=== PATIENT | female | born 1970 | race Hispanic/Latino ===

== ENCOUNTER → 2019-05-29 | Day surgery (SDC) | payer OTHER ==
[~2019-05-29] MED LIST: ALLEGRA-D 24 H1 EACH PO; FENTANYL CITRATE/PF 100MCG/2 ML INJ ONE; MIDAZOLAM HCL 2 MG/2 ML VIAL ONE; ONDANSETRON HCL INJ 2MG/ML 2ML 2 MG/ML VIAL ONE; PROPOFOL IV EMULSION 10 MG/ML 50 ML VIAL ONE; XARELTO10 MG PO; one a day PO
--- OUTSIDE RECORDS SUMMARY | 2019-05-29 06:48 | XMS REPORT ---
Author Author [place] [facility] Address Unknown Phone Unavailable Care Team Providers Care [facility] Name Role Phone Unavailable Unavailable Payers Payer Name Policy Type Policy Number Effective Date Expiration Date Problems This patient has no known problems. Allergies, Adverse Reactions, Alerts Allergy Name Allergy Type Status Severity Reaction(s) Onset Date Inactive Date Treating Clinician Comments No Known Contrast Allergies DA Active U 2004-10-10 00:00:00 No Known Drug Allergies DA Active U 2004-10-10 00:00:00 No Known Food Allergies DA Active U 2004-10-10 00:00:00 No Known Other Allergies DA Active U 2004-10-10 00:00:00 Medications This patient has no known medications. Results Test Description Test Time Test Comments Text Results Atomic Results Result Comments SCR MAMM BILATERAL CARMINA CAD DIGITAL 2019-04-16 09:53:57 - SCR MAMM BILATERAL CARMINA CAD DIGITALBILATERAL DIGITAL SCREENING MAMMOGRAM 3D/2D WITH CAD: 04/15/2019CLINICAL: Asymptomatic. Digital breast tomosynthesis was performed in addition to routine CC and MLO views. Current mammographic images were evaluated by either a [employer] M-Vu or a [employer] Image[employer]er CAD (computer aided detection system). Comparison is made to exams dated 04/18/2018 mammogram, 04/02 mammogram, and 03/06/2016 mammogram - [facility]. There are scattered fibroglandular tissues in both breasts. There are few benign calcifications in the right breast. No suspicious mass, architectural distortion, malignant type calcification, or lymph node abnormality detected. Breast architecture is stable compared to prior exams.IMPRESSION: BENIGNThere is no mammographic evidence of malignancy. Resume annual screening mammography in one year. Ryder Merrlil M.D. rb/:04/16/2019 09:53:57 Arch Support Technician: Maria Teresa TORRES, [facility] sent: BIRADS 1-2 Normal Mammogram BI-RADS: 2 Benign VENOUS THROMBOPHILIA PANEL 2018-11-15 17:16:00 PTT ACTIVATED (test code=APTT) 35.8 sec () This test has not been validated for monitoringunfractionated heparin therapy. aPTT-based therapeuticranges for unfractionated heparin therapy have not beenestablished. Consider ordering Heparin anti-Xa(unfractionated).Reference Range:18 years and older: 22.9 - 30.2 APTT 1:1 PUTTY TINTER MAKER: 29.3 secReference Range: 18 years and older: 22.9 - 30.2APTT 1:1 Saline: 44.8 Sec RVVT PATIENT (test code=RVVTPAT) ratio () DRVVT Screen Seconds: 120.0 High secReference Range: <=47.0 DRVVT Confirm Seconds: 64.0 secDRVVT Ratio: 1.8 High ratioVerified by repeat analysis.Testing while the patient is on anticoagulant therapy,including warfarin, dabigatran, or a direct Xa inhibitor maycause a false positive result.Reference Range: 0.8 - 1.2 Hexagonal Phospholipid [place]orge tral: 4 secThis value is NEGATIVE.This is a qualitative assay and is therefore reported aspositive for lupus anticoagulant or negative. Thequantitative value is provided as an aid in diagnosis.Reference Range: 0 - 11Previously reported result: 1.8 ratioEdited by: JOSE on 11/15/18:1710 PTT LONG ACTING (test code=PTTLA) seconds LAC Interpretation:The following interpretation for the presence of a lupusanticoagulant (LA) is not valid for patients receivingwarfarin, direct Xa inhibitor (e.g., rivaroxaban, apixaban)or direct thrombin inhibitor (e.g., dabigatran) therapy.These drugs may cause false positive lupus anticoagulant(LA) results but will not interfere with aCL and F1QT4msjcldee testing.A lupus anticoagulant is detected. This interpretation ismade based on ISTH guidelines for LA diagnosis (J ThrombHaemost. 2009; 7: 1737-40). As only persistent LA meetlaboratory diagnostic criteria for antiphospholipidsyndrome, repeat testing in 12 or more weeks isrecommended, ideally in the absence of anticoagulanttherapy. All SUMIT-based antiphospholipid antibodiesevaluated are normal. Please contact [facility]if further clarification is needed. ACTIVATED PROT C RESISTANCE (test code=APC) 2.0 ratio () A low activated protein C resistance (APCR) is a risk factorfor venous thrombosis and is a screen for the Factor VLeiden mutation. Consider molecular analysis for thismutation. Other causes for abnormal APCR are uncommon andinclude other rare mutations in the Factor V molecule, and certain drug therapies, including thalidomidetherapy, presence of a lupus anticoagulant, increased FactorVIII le vels, and autoantibodies against activated protein C.Reference Range:2.2 - 3.5 FACTOR II (test code=FAC2) % normal 60-150 Factor II Gene Mutation Result: G- G (Normal-Normal)No prothrombin [id number] mutation present. Interpretation:While the patient does not possess this risk factor, otherthrombotic risk factors may be detected through systematicclinical laboratory analysis.Methodology:Patient DNA was evaluated for the factor II gene mutationat nucleotide 05514 using PCR amplification followed byrestriction analysis and gel electrophoresis.Comments:Simultaneous Risks: If a patient possesses two or morecongenital or acquired thrombophilic risk factors, the riskof thrombosis may rise to more than the sum of the riskratios for the individual risk factors. For instance, acombination of the prothrombin I14740N mutation and thefactor V Leiden mutation may confer an increase inthrombotic risk in the range of 20-30 fold.Recommendations for Genetic Counseling: The prothrombingene mutation is an inherited characteristic. If themutation is present, we recommend that the patient andtheir family consider genetic counseling to obtainadditional information on inheritance and to identify otherfamily members at risk.Testing Characteristics: Genetic testing providesexceptionally high sensitivity and specificity. Inaccurateresults are limited to rare polymorphisms in primer bindingsites and to misidentification of specimens by collectorsor laboratory personnel. This assay detects only theprothrombin [id number] mutation and does not detect othergenetic abnormalities.This test was developed and its performance characteristicsdetermined by [facility]. It has not been cleared or approvedby the Food and Drug Administration.References: Rudolph K, et al. Br J of Haem. 1997;98:907.Armani JOHNSTON, et al. Br J of Haem. 1997;98:353. Khari Mol.Diagn. 2001;6(3):201.Ana J, et al. Thromb Haemost. 2001;86:809-16.Noel Nance, et al. Thromb Haemost. 1999;82:1583.Previously reported result: % normalEdited by: JOSE on 11/15/18:1711 FACTOR V MUTATION (test code=FAC5M) Factor V Leiden Result: G-A (Normal-Mutant)Positive - Heterozygous for factor V Leiden mutation. Interpretation:The factor V Leiden mutation is present on one copy of thepatient's factor V gene. Presence of the heterozygousfactor V Leiden mutation confers an approximate 5-foldincrease in the risk of venous thrombosis.Methodology:Patient DNA was evaluated for the factor V Leiden mutationat nucleotide 1691 using allele specific PCR technologyfollowed by gel electrophoresis.Comments:Simultaneous Risks: If a patient possesses two or morecongenital or acquired thrombophilic risk factors, the riskof thrombosis may rise to more than the sum of the riskratios for the individual risk factors. For instance, acombination of the prothrombin [id number] mutation and thefactor V Leiden mutation may confer an increase inthrombotic risk in the range of 20-30 fold.Recommendations for Genetic Counseling: The factor V Leidenmutation is an inherited characteristic. If the mutation ispresent, we recommend that the patient and their familyconsider genetic counseling to obtain additionalinformation on inheritance and to identify other familymembers at risk.Testing Characteristics: Genetic testing providesexceptionally high sensitivity and specificity. Inaccurateresults are limited to rare polymorphisms in primer bindingsites and to misidentification of specimens by collectorsor laboratory personnel. This assay detects only the factorV Leiden mutation and does not detect other geneticabnormalities.This test was developed and its performance characteristicsdetermined by [facility]. It has not been cleared or approvedby the Food and Drug Administration.References:Krystina MCELROY, et al. Thromb Haemost. 1995;74:449. Khari Mol.Diagn. 2001;6(3):201.Ana J, et al. Thromb Haemost. 2001;86:809-16. Mustapha et al. Thromb Haemost. 1996;76:229. FACTOR VII (test code=FAC7) 125 % () Reference Range:7 months and older: 60 - 175Results of this test are for research purposes only [employer] assay sprayer automatic spray machine. The performance characteristics ofthis assay have not been established. The result should notbe used as a diagnostic procedure without confirmation ofthe diagnosis by another medically established diagnosticproduct or procedure. FACTOR VIII (test code=FAC8) 116 % () Reference Range:57 - 163 ANTITHROMBIN III (ATIII) (test code=AT3) 132 % () Direct oral anticoagulants such as rivaroxaban, apixaban andedoxaban will lead to spuriously elevated antithrombinactivity levels possibly masking a deficiency.Reference Range:7 months and older: 75 - 135 PROTEIN C ANTIGENIC (test code=PROTCAG) 82 % () Reference Range: 17 years and older: 60 - 150 Protein C Ag/FVII Ag Ratio 0.7 ratioReference Range: 0.5 - 2.2Results of this test are for research purposes only [employer] assay sprayer automatic spray machine. The performance characteristics ofthis assay have not been established. The result should notbe used as a diagnostic procedure without confirmation ofthe diagnosis by another medically established diagnosticproduct or procedure. Act. Prt C Resist w/FV Defic. : 2.0 Low ratioA low activated protein C resistance (APCR) is a risk factorfor venous thrombosis and is a screen for the Factor VLeiden mutation. Consider molecular analysis for thismutation. Other causes for abnormal APCR are uncommon andinclude other rare mutations in the Factor V molecule, and certain drug therapies, including thalidomidetherapy, presence of a lupus anticoagulant, increased FactorVIII levels, and autoantibodies against activated protein C.Reference Range: 2.2 - 3.5 PROTEIN S TOTAL (test code=PROTSTOT) 93 % () Reference Range:7 months and older: 60 - 150This test was developed and its performance characteristicsdetermined by [facility]. It has not been cleared or approvedby the Food and Drug Administration. Protein S Ag/FVII Ag Ratio 0.7 ratioReference Range: 0.5 - 2.2Results of this test are for research purposes only perthe assay sprayer automatic spray machine. The performance charac teristics ofthis assay have not been established. The result should notbe used as a diagnostic procedure without confirmation ofthe diagnosis by another medically established diagnosticproduct or proced ure. Protein S PanelProtein S, Total: 85 % (60 - 150)This test was developed and its performance characteristicsdetermined by [facility]. It has not been cleared or approvedby the Food and Drug Administration. Protein S, Free: 89 % (57 - 157)This test was developed and its performance characteristicsdetermined by [facility]. It has not been cleared or approvedby the Food and Drug Administration. Protein S- Functional: 99 % (63 - 140)Protein S activity may be falsely increased (masking anabnormal, lowresult) in patients receiving direct Xa inhibitor (e.g.,rivaroxab an,apixaban, edoxaban) or a direct thrombin inhibitor (e.g.,dabigatran)anticoagulant treatment due to assay interference by thesedrugs. PSGY-9-DCNKB I IGM (test code=GPIIGM) < 10 SMU () The reference interval reflects a 3SD or 99th percentileinterval, which is thought to represent a potentiallyclinically significant result in accordance with theInternational Consensus Statement on the classificationcriteria for definitive antiphospholipid syndrome (APS). JThromb Zxmr0607;4:295-306.Reference Range:Negative: <33 DDBR-8-WUFKM I IGG (test code=GPIIGG) < 10 SGU () The reference interval reflects a 3SD or 99th percentileinterval, which is thought to represent a potentiallyclinically significant result in accordance with theInternational Consensus Statement on the classificationcriteria for definitive antiphospholipid syndrome (APS). JThromb Lmxo7531;4:295-306.Reference Range:Negative: <21 JWCX-2-TUZUD I IGA (test code=GPIIGA) < 10 ASNTOSH () The reference interval reflects a 3SD or 99th percentileinterval.Reference Range:Negative: <26 HOMOCYSTEINE (test code=HOMOCY) 8.1 umol/L () Homocysteine levels in patients >60 years increase 1-2umol/L.Reference Range:5.0 - 15.0 AB CARDIOLIPIN IGG (test code=CARDIOGAB) <10 GPL () Reference Range:Negative: <15Indeterminate: 15 - 20Low to medium positive: >20 - 80High positive: >80 AB CARDIOLIPIN IGM (test code=CARDIOMAB) <10 MPL () Reference Range:Negative: <13Indeterminate: 13 - 20Low to medium positive: >20 - 80High positive: >80 PROTHROMBIN [id number] 17:16:00* Test Item Value Reference Range Comments PROTHROMBIN TIME PATIENT (test code=PTP) 18.2 seconds 9.0-14.0 INTERNATIONAL NORMAL RATIO (test code=INR) 1.6 0.8-1.2 The therapeutic range for oral anticoagulant therapy formost indications is an international normalized ratio (INR)of between 2.0 and 3.0. The recommended therapeutic INRrange for various clinical situations is listed below: Clinical Situation INR range Pulmonary e mbolism treatment (2.0-3.0)Venous thrombosis treatmentVenous thrombosis prophylaxis (high risk surgery)Prevention of systemic embolism from: Acute myocardial infarction Valvular heart disease Atrial fibrillation Mechanical prosthetic heart valves (2.5-3.5) [id number] 17:16:00* Test Item Value Reference Range Comments FIBRINOGEN (test code=FIB) 247 mg/dL 200-400 [id number] 17:16:00* Test Item Value Reference Range Comments D-DIMER (test code=DDIMER) 267.00 ng/mLFEU 0-500 Clinical Cut-off value for D- Dimer is 500 ng/mL FEU. Comment: The [employer] D-Dimer assay is intended for use asan aid in the diagnosis of venous thromboembolism (VTE)[deep vein thrombosis (DVT) or pulmonary embolism (PE)].The measurement of D-Dimer should not be used as an aid inthe diagnosis of VTE, in patient with: -Therapeutic dose anticoagulant therapy for >24 hours -Fibrinolytic therapy within previous 7 days -Trauma or surgery within previous 4 weeks -Disseminated malignancies - Aortic aneurysm -Sepsis, severe infections, pneumonia, severe skin infections -Liver cirrhosis - FACTOR [id number] 17:16:00* Test Item Value Reference Range Comments FACTOR X (test code=FAC10) 83 % 76-183 Performed At: [address] [id number] Sterling MD Ph:[phone] PROTEIN S [id number] 17:16:00* Test Item Value Reference Range Comments PROTEIN S FUNC (test code=PROTSFN) 99 % 63-140 Protein S activity may be falsely increased (masking anabnormal, low result) in patients receiving direct Xainhibitor (e.g., rivaroxaban, apixaban, edoxaban) or adirect thrombin inhibitor (e.g., dabigatran) anticoagulanttreatment due to assay interference by these drugs. PROTEIN S FREE (test code=PROTSF) 89 % 57-157 This test was developed and its performance characteristicsdetermined by [facility]. It has not been cleared orapproved by the Food and Drug Administration. MTHF REDUCTASE (PCR) [id number] 17:16:00* Test Item Value Reference Range Comments MTHF REDUCTASE (PCR) 677 (test code=MTHFR 677) () Result: C677T/H2929RXfk mutations (C677T and P7034S) identifiedInterpretation:This patient's sample was analyzed for the MTHFR [id number] and I3704S. One copy of the C677T mutation and onecopy of the N7075R mutation were identified. Populationdata suggest these two mutations are not present on thesame chromosome, although rare exceptions have beenreported. The diagnosis of hyperhomocysteinemia can notrely on DNA testing alone but should take intoconsideration clinical findings and other studies, such asserum homocysteine levels. Because MTHFR mutations andtheir associated risks are inherited, genetic counselingand testing of at-risk family members should be considered.Methylenetetrahydrofolate reductase (MTHFR) is a santiago enzyme in thefolate pathway and is responsible for the metabolism of homocysteine.There are two common variants in the MTHFR gene, c.655c>T(p.Iza216Ncna), referred to as C677T, and c.1286A>C (p.Lgp062Feq),referred to as Z2224K. Individuals homozygous for C677T (two copiesof the variant), have decreased activity of the MTHFR enzyme and apredisposition to hyperhomocysteinemia, particularly when deficient infolate. Hyperhomocysteinemia is a risk factor for venous thrombo sisand coronary artery disease and is associated with an increased riskof open neural tube defects. The C677T variant does notindependently increase risk of these conditions in the absence ofhyperhomocysteinemia. The X5924M variant is not associated withelevated homocysteine levels unless a C677T variant is also present;however, the clinical significance of heterozygosity for both H984Yzfr V3235T is controversial. Population data suggest that these twovariants are not present on the same chromosome, but rare exceptionshave been reported of triple variant MTHFR genotypes (ie. homozygousfor one variant and heterozygous for the other). Homozygosity aerS623X has an estimated frequency of 10% to 15% in Caucasians and 25%in Hispanics.Additional information:Dietary folic acid, B6 and B12 supplementation has been suggested tolower homocysteine levels in some people. Folic acid supplementationhas been shown to reduce the occurrence of neural tube defects.Genetic counselors are available for health care providers to discussresults at [phone]Methodology:DNA analysis of the MTHFR gene was performed by PCRamplification followed by restriction analysis. Thediagnostic sensitivity is >99% for both. Molecular-basedtesting is highly accurate, but as in any laboratory test,rare diagnostic errors may occur. All test results must becombined with clinical information for the most accurateinte rpretation.This test was developed and its performance characteristicsdetermined by [facility]. It has not been cleared or approved bythe Food and Drug Administration.References:Giovanni LD, Silvano Q. Am J Epidemiol 2000; 151(9):862- 877.Abhijit MM, Carl JA. Arch Pathol Lab Med 2007; 131(6):872-884.Frosst P et al. Chaparrita Teresa 1995; 10(1):111-113.Hickey SE et al. Teresa Med 2013; 15(2):153- 156.[place] C et al. Obstet Gynecol 2011; 118(3):730-740.Timothy B et al. Eur J Epidemiol 2013; 28(8):621-647.Vicente Randolph, PhD, Bob Mireles, PhD, Jose Quach MErikaSErika, PhD, Blue Coleman, PhD, Sravan Mireles, PhD, Faith Nichole, PhD, FACMGPerformed At: [facility] [id number] [place] [address] [id number] Cook MD Ph:[phone] VENOUS THROMBOPHILIA [id number] 07:23:00* Test Item Value Reference Range Comments PTT ACTIVATED (test code=APTT) 35.8 sec () This test has not been validated for monitoringunfractionated heparin therapy. aPTT-based therapeuticranges for unfractionated heparin therapy have not beenestablished. Consider ordering Heparin anti-Xa(unfractionated).Reference Range:18 years and older: 22.9 - 30.2 RVVT PATIENT (test code=RVVTPAT) 1.8 ratio () Verified by repeat analysis.Testing while the patient is on anticoagulant therapy,including warfarin, dabigatran, or a direct Xa inhibitor maycause a false positive result.Reference Range:0.8 - 1.2 PTT LONG ACTING (test code=PTTLA) seconds ACTIVATED PROT C RESISTANCE (test code=APC) 2.0 ratio () A low activated protein C resistance (APCR) is a risk factorfor venous thrombosis and is a screen for the Factor VLeiden mutation. Consider molecular analysis for thismutation. Other causes for abnormal APCR are uncommon andinclude other rare mutations in the Factor V molecule, and certain drug therapies, including thalidomidetherapy, presence of a lupus anticoagulant, increased FactorVIII le vels, and autoantibodies against activated protein C.Reference Range:2.2 - 3.5 FACTOR II (test code=FAC2) % normal () Simultaneous Risks: If a patient possesses two or morecongenital or acquired thrombophilic risk factors, the riskof thrombosis may rise to more than the sum of the riskratios for the individual risk factors. For instance, acombination of the prothrombin [id number] mutation and thefactor V Leiden mutation may confer an increase inthrombotic risk in the range of 20-30 fold.Recommendations for Genetic Counseling: The prothrombingene mutation is an inherited characteristic. If themutation is present, we recommend that the patient andtheir family consider genetic counseling to obtainadditional information on inheritance and to identify otherfamily members at risk.Testing Characteristics: Genetic testing providesexceptionally high sensitivity and specificity. Inaccurateresults are limited to rare polymorphisms in primer bindingsites and to misidentification of specimens by collectorsor laboratory personnel. This assay detects only theprothrombin C10295G mutation and does not detect othergenetic abnormalities.This test was developed and its performance characteristicsdetermined by [facility]. It has not been cleared or approvedby the Food and Drug Administration.References: Rudolph Terrell, joselito al. Br J of Haem. 19 97;98:907.Armani JOHNSTON, et al. Br J of Haem. 1997;98:353. Khari Mol.Diagn. 2001;6(3):201.Ana J, et al. Thromb Haemost. 2001;86:809-16.Noel Nance, et al. Thromb Haemost. 1999;82:1583. FACTOR V MUTATION (test code=FAC5M) FACTOR VII (test code=FAC7) 125 % () Reference Range:7 months and older: 60 - 175Results of this test are for research purposes only perthe assay sprayer automatic spray machine. The performance characteristics ofthis assay have not been established. The result should notbe used as a diagnostic procedure without confirmation ofthe diagnosis by another medically established diagnosticproduct or procedure. FACTOR VIII (test code=FAC8) 116 % () Reference Range:57 - 163 ANTITHROMBIN III (ATIII) (test code=AT3) 132 % () Direct oral anticoagulants such as rivaroxaban, apixaban andedoxaban will lead to spuriously elevated antithrombinactivity levels possibly masking a deficiency.Reference Range:7 months and older: 75 - 135 PROTEIN C ANTIGENIC (test code=PROTCAG) 82 % () Reference Range:17 years and older: 60 - 150 PROTEIN S TOTAL (test code=PROTSTOT) 93 % () Reference Range:7 months and older: 60 - 150This test was developed and its performance characteristicsdetermined by [facility]. It has not been cleared or approvedby the Food and Drug Administration. AKQS-0-AAAVW I IGM (test code=GPIIGM) < 10 SMU () The reference interval reflects a 3SD or 99th percentileinterval, which is thought to represent a potentiallyclinically significant result in accordance with theInternational Consensus Statement on the classificationcriteria for definitive antiphospholipid syndrome (APS). JThromb Mjfl3613;4:295-306.Reference Range:Negative: <33 ADXX-3-ILFCR I IGG (test code=GPIIGG) < 10 SGU () The reference interval reflects a 3SD or 99th percentileinterval, which is thought to represent a potentiallyclinically significant result in accordance with theInternational Consensus Statement on the classificationcriteria for definitive antiphospholipid syndrome (APS). JThromb Oihp2479;4:295-306.Reference Range:Negative: <21 XCTE-1-IJGCP I IGA (test code=GPIIGA) < 10 SANTOSH () The reference interval reflects a 3SD or 99th percentileinterval.Reference Range:Negative: <26 HOMOCYSTEINE (test code=HOMOCY) 8.1 umol/L () Homocysteine levels in patients >60 years increase 1-2umol/L.Reference Range:5.0 - 15.0 AB CARDIOLIPIN IGG (test code=CARDIOGAB) <10 GPL () Reference Range:Negative: <15Indeterminate: 15 - 20Low to medium positive: >20 - 80High positive: >80 AB CARDIOLIPIN IGM (test code=CARDIOMAB) <10 MPL () Reference Range:Negative: <13Indeterminate: 13 - 20Low to medium positive: >20 - 80High positive: >80 PROTHROMBIN [id number] 07:23:00* Test Item Value Reference Range Comments PROTHROMBIN TIME PATIENT (test code=PTP) 18.2 seconds 9.0-14.0 INTERNATIONAL NORMAL RATIO (test code=INR) 1.6 0.8-1.2 The therapeutic range for oral anticoagulant therapy formost indications is an international normalized ratio (INR)of between 2.0 and 3.0. The recommended therapeutic INRrange for various clinical situations is listed below: Clinical Situation INR range Pulmonary e mbolism treatment (2.0-3.0)Venous thrombosis treatmentVenous thrombosis prophylaxis (high risk surgery)Prevention of systemic embolism from: Acute myocardial infarction Valvular heart disease Atrial fibrillation Mechanical prosthetic heart valves (2.5-3.5) [id number] 07:23:00* Test Item Value Reference Range Comments FIBRINOGEN (test code=FIB) 247 mg/dL 200-400 [id number] 07:23:00* Test Item Value Reference Range Comments D-DIMER (test code=DDIMER) 267.00 ng/mLFEU 0-500 Clinical Cut-off value for D- Dimer is 500 ng/mL FEU. Comment: The [employer] D-Dimer assay is intended for use asan aid in the diagnosis of venous thromboembolism (VTE)[deep vein thrombosis (DVT) or pulmonary embolism (PE)].The measurement of D-Dimer should not be used as an aid inthe diagnosis of VTE, in patient with: -Therapeutic dose anticoagulant therapy for >24 hours -Fibrinolytic therapy within previous 7 days -Trauma or surgery within previous 4 weeks -Disseminated malignancies - Aortic aneurysm -Sepsis, severe infections, pneumonia, severe skin infections -Liver cirrhosis - FACTOR [id number] 07:23:00* Test Item Value Reference Range Comments FACTOR X (test code=FAC10) 83 % 76-183 Performed At: [address] [id number] Sterling MD Ph:[phone] PROTEIN S [id number] 07:23:00* Test Item Value Reference Range Comments PROTEIN S FUNC (test code=PROTSFN) 99 % 63-140 Protein S activity may be falsely increased (masking anabnormal, low result) in patients receiving direct Xainhibitor (e.g., rivaroxaban, apixaban, edoxaban) or adirect thrombin inhibitor (e.g., dabigatran) anticoagulanttreatment due to assay interference by these drugs. PROTEIN S FREE (test code=PROTSF) 89 % 57-157 This test was developed and its performance characteristicsdetermined by [employer]. It has not been cleared orapproved by the Food and Drug Administration. MTHF REDUCTASE (PCR) [id number] 07:23:00* Test Item Value Reference Range Comments MTHF REDUCTASE (PCR) 677 (test code=MTHFR 677) VENOUS THROMBOPHILIA [id number] 07:23:00* Test Item Value Reference Range Comments PTT ACTIVATED (test code=APTT) 35.8 sec () This test has not been validated for monitoringunfractionated heparin therapy. aPTT-based therapeuticranges for unfractionated heparin therapy have not beenestablished. Consider ordering Heparin anti-Xa(unfractionated).Reference Range:18 years and older: 22.9 - 30.2 RVVT PATIENT (test code=RVVTPAT) 1.8 ratio () Verified by repeat analysis.Testing while the patient is on anticoagulant therapy,including warfarin, dabigatran, or a direct Xa inhibitor maycause a false positive result.Reference Range:0.8 - 1.2 PTT LONG ACTING (test code=PTTLA) seconds ACTIVATED PROT C RESISTANCE (test code=APC) 2.0 ratio () A low activated protein C resistance (APCR) is a risk factorfor venous thrombosis and is a screen for the Factor VLeiden mutation. Consider molecular analysis for thismutation. Other causes for abnormal APCR are uncommon andinclude other rare mutations in the Factor V molecule, and certain drug therapies, including thalidomidetherapy, presence of a lupus anticoagulant, increased FactorVIII le vels, and autoantibodies against activated protein C.Reference Range:2.2 - 3.5 FACTOR II (test code=FAC2) % normal () Simultaneous Risks: If a patient possesses two or morecongenital or acquired thrombophilic risk factors, the riskof thrombosis may rise to more than the sum of the riskratios for the individual risk factors. For instance, acombination of the prothrombin [id number] mutation and thefactor V Leiden mutation may confer an increase inthrombotic risk in the range of 20-30 fold.Recommendations for Genetic Counseling: The prothrombingene mutation is an inherited characteristic. If themutation is present, we recommend that the patient andtheir family consider genetic counseling to obtainadditional information on inheritance and to identify otherfamily members at risk.Testing Characteristics: Genetic testing providesexceptionally high sensitivity and specificity. Inaccurateresults are limited to rare polymorphisms in primer bindingsites and to misidentification of specimens by collectorsor laboratory personnel. This assay detects only theprothrombin [id number] mutation and does not detect othergenetic abnormalities.This test was developed and its performance characteristicsdetermined by [facility]. It has not been cleared or approvedby the Food and Drug Administration.References: joselito Rachel al. Br J of Haem. 19 ;98:907.Armani AM, et al. Br J of Haem. 1997;98:353. Khari Mol.Diagn. 2001;6(3):201.Ana Aguillon, et al. Thromb Haemost. 2001;86:809-16.Noel Nance, et al. Thromb Haemost. 1999;82:1583. FACTOR V MUTATION (test code=FAC5M) FACTOR VII (test code=FAC7) 125 % () Reference Range:7 months and older: 60 - 175Results of this test are for research purposes only perthe assay sprayer automatic spray machine. The performance characteristics ofthis assay have not been established. The result should notbe used as a diagnostic procedure without confirmation ofthe diagnosis by another medically established diagnosticproduct or procedure. FACTOR VIII (test code=FAC8) 116 % () Reference Range:57 - 163 ANTITHROMBIN III (ATIII) (test code=AT3) 132 % () Direct oral anticoagulants such as rivaroxaban, apixaban andedoxaban will lead to spuriously elevated antithrombinactivity levels possibly masking a deficiency.Reference Range:7 months and older: 75 - 135 PROTEIN C ANTIGENIC (test code=PROTCAG) 82 % () Reference Range:17 years and older: 60 - 150 PROTEIN S TOTAL (test code=PROTSTOT) 93 % () Reference Range:7 months and older: 60 - 150This test was developed and its performance characteristicsdetermined by [facility]. It has not been cleared or approvedby the Food and Drug Administration. TOCA-5-LUGBW I IGM (test code=GPIIGM) < 10 [facility]U () The reference interval reflects a 3SD or 99th percentileinterval, which is thought to represent a potentiallyclinically significant result in accordance with theInternational Consensus Statement on the classificationcriteria for definitive antiphospholipid syndrome (APS). JThromb Oxfn6671;4:295-306.Reference Range:Negative: <33 HWUJ-7-EJBUL I IGG (test code=GPIIGG) < 10 SGU () The reference interval reflects a 3SD or 99th percentileinterval, which is thought to represent a potentiallyclinically significant result in accordance with theInternational Consensus Statement on the classificationcriteria for definitive antiphospholipid syndrome (APS). JThromb Cgxk0125;4:295-306.Reference Range:Negative: <21 WTPE-8-ULZXC I IGA (test code=GPIIGA) < 10 SANTOSH () The reference interval reflects a 3SD or 99th percentileinterval.Reference Range:Negative: <26 HOMOCYSTEINE (test code=HOMOCY) 8.1 umol/L () Homocysteine levels in patients >60 years increase 1-2umol/L.Reference Range:5.0 - 15.0 AB CARDIOLIPIN IGG (test code=CARDIOGAB) <10 GPL () Reference Range:Negative: <15Indeterminate: 15 - 20Low to medium positive: >20 - 80High positive: >80 AB CARDIOLIPIN IGM (test code=CARDIOMAB) <10 MPL () Reference Range:Negative: <13Indeterminate: 13 - 20Low to medium positive: >20 - 80High positive: >80 PROTHROMBIN [id number] 07:23:00* Test Item Value Reference Range Comments PROTHROMBIN TIME PATIENT (test code=PTP) 18.2 seconds 9.0-14.0 INTERNATIONAL NORMAL RATIO (test code=INR) 1.6 0.8-1.2 The therapeutic range for oral anticoagulant therapy formost indications is an international normalized ratio (INR)of between 2.0 and 3.0. The recommended therapeutic INRrange for various clinical situations is listed below: Clinical Situation INR range Pulmonary e mbolism treatment (2.0-3.0)Venous thrombosis treatmentVenous thrombosis prophylaxis (high risk surgery)Prevention of systemic embolism from: Acute myocardial infarction Valvular heart disease Atrial fibrillation Mechanical prosthetic heart valves (2.5-3.5) [id number] 07:23:00* Test Item Value Reference Range Comments FIBRINOGEN (test code=FIB) 247 mg/dL 200-400 [id number] 07:23:00* Test Item Value Reference Range Comments D-DIMER (test code=DDIMER) 267.00 ng/mLFEU 0-500 Clinical Cut-off value for D- Dimer is 500 ng/mL FEU. Comment: The [employer] D-Dimer assay is intended for use asan aid in the diagnosis of venous thromboembolism (VTE)[deep vein thrombosis (DVT) or pulmonary embolism (PE)].The measurement of D-Dimer should not be used as an aid inthe diagnosis of VTE, in patient with: -Therapeutic dose anticoagulant therapy for >24 hours -Fibrinolytic therapy within previous 7 days -Trauma or surgery within previous 4 weeks -Disseminated malignancies - Aortic aneurysm -Sepsis, severe infections, pneumonia, severe skin infections -Liver cirrhosis - FACTOR [id number] 07:23:00* Test Item Value Reference Range Comments FACTOR X (test code=FAC10) 83 % 76-183 Performed At: [address] [id number] Sanjai MD Ph:[phone] PROTEIN S [id number] 07:23:00* Test Item Value Reference Range Comments PROTEIN S FUNC (test code=PROTSFN) 99 % 63-140 Protein S activity may be falsely increased (masking anabnormal, low result) in patients receiving direct Xainhibitor (e.g., rivaroxaban, apixaban, edoxaban) or adirect thrombin inhibitor (e.g., dabigatran) anticoagulanttreatment due to assay interference by these drugs. PROTEIN S FREE (test code=PROTSF) 89 % 57-157 This test was developed and its performance characteristicsdetermined by [facility]. It has not been cleared orapproved by the Food and Drug Administration. MTHF REDUCTASE (PCR) [id number] 07:23:00* Test Item Value Reference Range Comments MTHF REDUCTASE (PCR) 677 (test code=MTHFR 677) () Result: C677T/S5675WHed mutations (C677T and Y6948M) identifiedInterpretation:This patient's sample was analyzed for the MTHFR mwktvcdufQ328U and D0079U. One copy of the C677T mutation and onecopy of the J2537X mutation were identified. Populationdata suggest these two mutations are not present on thesame chromosome, although rare exceptions have beenreported. The diagnosis of hyperhomocysteinemia can notrely on DNA testing alone but should take intoconsideration clinical findings and other studies, such asserum homocysteine levels. Because MTHFR mutations andtheir associated risks are inherited, genetic counselingand testing of at-risk family members should be considered.Methylenetetrahydrofolate reductase (MTHFR) is a santiago enzyme in thefolate pathway and is responsible for the metabolism of homocysteine.There are two common variants in the MTHFR gene, c.655c>T(p.Dic754Mpvg), referred to as C677T, and c.1286A>C (p.Una393Ixb),referred to as E3957I. Individuals homozygous for C677T (two copiesof the variant), have decreased activity of the MTHFR enzyme and apredisposition to hyperhomocysteinemia, particularly when deficient infolate. Hyperhomocysteinemia is a risk factor for venous thrombo sisand coronary artery disease and is associated with an increased riskof open neural tube defects. The C677T variant does notindependently increase risk of these conditions in the absence ofhyperhomocysteinemia. The M7406N variant is not associated withelevated homocysteine levels unless a C677T variant is also present;however, the clinical significance of heterozygosity for both P010Txhe T7126T is controversial. Population data suggest that these twovariants are not present on the same chromosome, but rare exceptionshave been reported of triple variant MTHFR genotypes (ie. homozygousfor one variant and heterozygous for the other). Homozygosity zxyX273S has an estimated frequency of 10% to 15% in Caucasians and 25%in Hispanics.Additional information:Dietary folic acid, B6 and B12 supplementation has been suggested tolower homocysteine levels in some people. Folic acid supplementationhas been shown to reduce the occurrence of neural tube defects.Genetic counselors are available for health care providers to discussresults at [phone].Methodology:DNA analysis of the MTHFR gene was performed by PCRamplification followed by restriction analysis. Thediagnostic sensitivity is >99% for both. Molecular-basedtesting is highly accurate, but as in any laboratory test,rare diagnostic errors may occur. All test results must becombined with clinical information for the most accurateinte rpretation.This test was developed and its performance characteristicsdetermined by [facility]. It has not been cleared or approved bythe Food and Drug Administration.References:Giovanni LD, Silvano Q. Am J Epidemiol 2000; 151(9):862- 877.Abhijit MM, Carl JA. Arch Pathol Lab Med 2007; 131(6):872-884.Willissst P et al. Chaparrita Teresa 1995; 10(1):111-113.Hickey SE et al. Teresa Med 2013; 15(2):153- 156.[place] C et al. Obstet Gynecol 2011; 118(3):730-740.Timothy B et al. Eur J Epidemiol 2013; 28(8):621-647.Vicente Randolph, PhD, Bob Mireles, PhD, Jose Quach MErikaSErika, PhD, Blue Coleman, PhD, Sravan Mireles, PhD, Faith Nichole, PhD, FACMGPerformed At: [id number] [id number] Nicho Cook MD Ph:[phone] ANTIPHOSPHATIDYL SERINE [id number] 10:20:00* Test Item Value Reference Range Comments APS ABS IGG (test code=APSIGG) 5 GPS IgG 0-11 Performed At: [facility] [id number] Sterling MD Ph:[phone] APS ABS IGM (test code=APSIGM) 28 MPS IgM 0-25 APS ABS IGA (test code=APSIGA) 6 APS IgA 0-20 ANTIPHOSPHATIDYL SERINE [id number] 10:17:00* Test Item Value Reference Range Comments APS ABS IGG (test code=APSIGG) GPS APS ABS IGM (test code=APSIGM) MPS APS ABS IGA (test code=APSIGA) 6 APS IgA 0-20 VENOUS THROMBOPHILIA [id number] 23:06:00* Test Item Value Reference Range Comments PTT ACTIVATED (test code=APTT) RVVT PATIENT (test code=RVVTPAT) PTT LONG ACTING (test code=PTTLA) seconds ACTIVATED PROT C RESISTANCE (test code=APC) ratio FACTOR II (test code=FAC2) % normal 60-150 FACTOR V MUTATION (test code=FAC5M) FACTOR VII (test code=FAC7) % normal FACTOR VIII (test code=FAC8) % ANTITHROMBIN III (ATIII) (test code=AT3) % 75-135 PROTEIN C ANTIGENIC (test code=PROTCAG) % PROTEIN S TOTAL (test code=PROTSTOT) % 58-150 DLSH-5-JGJJB I IGM (test code=GPIIGM) SMU SWMB-4-OTDKH I IGG (test code=GPIIGG) SGU CEHO-2-QBZTQ I IGA (test code=GPIIGA) SANTOSH HOMOCYSTEINE (test code=HOMOCY) umol/L AB CARDIOLIPIN IGG (test code=CARDIOGAB) GPL <12 AB CARDIOLIPIN IGM (test code=CARDIOMAB) MPL <11 PROTHROMBIN [id number] 23:06:00* Test Item Value Reference Range Comments PROTHROMBIN TIME PATIENT (test code=PTP) 18.2 seconds 9.0-14.0 INTERNATIONAL NORMAL RATIO (test code=INR) 1.6 0.8-1.2 The therapeutic range for oral anticoagulant therapy form[facility] indications is an international normalized ratio (INR)of between 2.0 and 3.0. The recommended therapeutic INRrange for various clinical situations is listed below: Clinical Situation INR range Pulmonary e mbolism treatment (2.0-3.0)Venous thrombosis treatmentVenous thrombosis prophylaxis (high risk surgery)Prevention of systemic embolism from: Acute myocardial infarction Valvular heart disease Atrial fibrillation Mechanical prosthetic heart valves (2.5-3.5) [id number] 23:06:00* Test Item Value Reference Range Comments FIBRINOGEN (test code=FIB) 247 mg/dL 200-400 [id number] 23:06:00* Test Item Value Reference Range Comments D-DIMER (test code=DDIMER) 267.00 ng/mLFEU 0-500 Clinical Cut-off value for D- Dimer is 500 ng/mL FEU. Comment: The [employer] D-Dimer assay is intended for use asan aid in the diagnosis of venous thromboembolism (VTE)[deep vein thrombosis (DVT) or pulmonary embolism (PE)].The measurement of D-Dimer should not be used as an aid inthe diagnosis of VTE, in patient with: -Therapeutic dose anticoagulant therapy for >24 hours -Fibrinolytic therapy within previous 7 days -Trauma or surgery within previous 4 weeks -Disseminated malignancies - Aortic aneurysm -Sepsis, severe infections, pneumonia, severe skin infections -Liver cirrhosis - FACTOR [id number] 23:06:00* Test Item Value Reference Range Comments FACTOR X (test code=FAC10) % PROTEIN S [id number] 23:06:00* Test Item Value Reference Range Comments PROTEIN S FUNC (test code=PROTSFN) 99 % 63-140 Protein S activity may be falsely increased (masking anabnormal, low result) in patients receiving direct Xainhibitor (e.g., rivaroxaban, apixaban, edoxaban) or adirect thrombin inhibitor (e.g., dabigatran) anticoagulanttreatment due to assay interference by these drugs. PROTEIN S FREE (test code=PROTSF) 89 % 57-157 This test was developed and its performance characteristicsdetermined by [facility]. It has not been cleared orapproved by the Food and Drug Administration. MTHF REDUCTASE (PCR) [id number] 23:06:00* Test Item Value Reference Range Comments MTHF REDUCTASE (PCR) 677 (test code=MTHFR 677) VENOUS THROMBOPHILIA [id number] 23:06:00* Test Item Value Reference Range Comments PTT ACTIVATED (test code=APTT) RVVT PATIENT (test code=RVVTPAT) PTT LONG ACTING (test code=PTTLA) seconds ACTIVATED PROT C RESISTANCE (test code=APC) ratio FACTOR II (test code=FAC2) % normal 60-150 FACTOR V MUTATION (test code=FAC5M) FACTOR VII (test code=FAC7) % normal FACTOR VIII (test code=FAC8) % ANTITHROMBIN III (ATIII) (test code=AT3) % 75-135 PROTEIN C ANTIGENIC (test code=PROTCAG) % PROTEIN S TOTAL (test code=PROTSTOT) % 58-150 VXYW-2-IWIDP I IGM (test code=GPIIGM) SMU FAIA-7-VFJAJ I IGG (test code=GPIIGG) SGU JJON-9-NPCRA I IGA (test code=GPIIGA) SANTOSH HOMOCYSTEINE (test code=HOMOCY) umol/L AB CARDIOLIPIN IGG (test code=CARDIOGAB) GPL <12 AB CARDIOLIPIN IGM (test code=CARDIOMAB) MPL <11 PROTHROMBIN [id number] 23:06:00* Test Item Value Reference Range Comments PROTHROMBIN TIME PATIENT (test code=PTP) 18.2 seconds 9.0-14.0 INTERNATIONAL NORMAL RATIO (test code=INR) 1.6 0.8-1.2 The therapeutic range for oral anticoagulant therapy form[facility] indications is an international normalized ratio (INR)of between 2.0 and 3.0. The recommended therapeutic INRrange for various clinical situations is listed below: Clinical Situation INR range Pulmonary e mbolism treatment (2.0-3.0)Venous thrombosis treatmentVenous thrombosis prophylaxis (high risk surgery)Prevention of systemic embolism from: Acute myocardial infarction Valvular heart disease Atrial fibrillation Mechanical prosthetic heart valves (2.5-3.5) [id number] 23:06:00* Test Item Value Reference Range Comments FIBRINOGEN (test code=FIB) 247 mg/dL 200-400 [id number] 23:06:00* Test Item Value Reference Range Comments D-DIMER (test code=DDIMER) 267.00 ng/mLFEU 0-500 Clinical Cut-off value for D- Dimer is 500 ng/mL FEU. Comment: The [employer] D-Dimer assay is intended for use asan aid in the diagnosis of venous thromboembolism (VTE)[deep vein thrombosis (DVT) or pulmonary embolism (PE)].The measurement of D-Dimer should not be used as an aid inthe diagnosis of VTE, in patient with: -Therapeutic dose anticoagulant therapy for >24 hours -Fibrinolytic therapy within previous 7 days -Trauma or surgery within previous 4 weeks -Disseminated malignancies - Aortic aneurysm -Sepsis, severe infections, pneumonia, severe skin infections -Liver cirrhosis - FACTOR [id number] 23:06:00* Test Item Value Reference Range Comments FACTOR X (test code=FAC10) 83 % 76-183 Performed At: [address] [id number] Sterling MD Ph:[phone] PROTEIN S [id number] 23:06:00* Test Item Value Reference Range Comments PROTEIN S FUNC (test code=PROTSFN) 99 % 63-140 Protein S activity may be falsely increased (masking anabnormal, low result) in patients receiving direct Xainhibitor (e.g., rivaroxaban, apixaban, edoxaban) or adirect thrombin inhibitor (e.g., dabigatran) anticoagulanttreatment due to assay interference by these drugs. PROTEIN S FREE (test code=PROTSF) 89 % 57-157 This test was developed and its performance characteristicsdetermined by [facility]. It has not been cleared orapproved by the Food and Drug Administration. MTHF REDUCTASE (PCR) [id number] 23:06:00* Test Item Value Reference Range Comments MTHF REDUCTASE (PCR) 677 (test code=MTHFR 677) VENOUS THROMBOPHILIA [id number] 17:45:00* Test Item Value Reference Range Comments PTT ACTIVATED (test code=APTT) RVVT PATIENT (test code=RVVTPAT) PTT LONG ACTING (test code=PTTLA) seconds ACTIVATED PROT C RESISTANCE (test code=APC) ratio FACTOR II (test code=FAC2) % normal 60-150 FACTOR V MUTATION (test code=FAC5M) FACTOR VII (test code=FAC7) % normal FACTOR VIII (test code=FAC8) % ANTITHROMBIN III (ATIII) (test code=AT3) % 75-135 PROTEIN C ANTIGENIC (test code=PROTCAG) % PROTEIN S TOTAL (test code=PROTSTOT) % 58-150 VINI-7-FCKPT I IGM (test code=GPIIGM) SMU ORZB-7-TTVLB I IGG (test code=GPIIGG) SGU SXNF-8-TEBTG I IGA (test code=GPIIGA) SANTOSH HOMOCYSTEINE (test code=HOMOCY) umol/L AB CARDIOLIPIN IGG (test code=CARDIOGAB) GPL <12 AB CARDIOLIPIN IGM (test code=CARDIOMAB) MPL <11 PROTHROMBIN [id number] 17:45:00* Test Item Value Reference Range Comments PROTHROMBIN TIME PATIENT (test code=PTP) 18.2 seconds 9.0-14.0 INTERNATIONAL NORMAL RATIO (test code=INR) 1.6 0.8-1.2 The therapeutic range for oral anticoagulant therapy form[facility] indications is an international normalized ratio (INR)of between 2.0 and 3.0. The recommended therapeutic INRrange for various clinical situations is listed below: Clinical Situation INR range Pulmonary e mbolism treatment (2.0-3.0)Venous thrombosis treatmentVenous thrombosis prophylaxis (high risk surgery)Prevention of systemic embolism from: Acute myocardial infarction Valvular heart disease Atrial fibrillation Mechanical prosthetic heart valves (2.5-3.5) [id number] 17:45:00* Test Item Value Reference Range Comments FIBRINOGEN (test code=FIB) 247 mg/dL 200-400 [id number] 17:45:00* Test Item Value Reference Range Comments D-DIMER (test code=DDIMER) 267.00 ng/mLFEU 0-500 Clinical Cut-off value for D- Dimer is 500 ng/mL FEU. Comment: The [employer] D-Dimer assay is intended for use asan aid in the diagnosis of venous thromboembolism (VTE)[deep vein thrombosis (DVT) or pulmonary embolism (PE)].The measurement of D-Dimer should not be used as an aid inthe diagnosis of VTE, in patient with: -Therapeutic dose anticoagulant therapy for >24 hours -Fibrinolytic therapy within previous 7 days -Trauma or surgery within previous 4 weeks -Disseminated malignancies - Aortic aneurysm -Sepsis, severe infections, pneumonia, severe skin infections -Liver cirrhosis - FACTOR [id number] 17:45:00* Test Item Value Reference Range Comments FACTOR X (test code=FAC10) % PROTEIN S [id number] 17:45:00* Test Item Value Reference Range Comments PROTEIN S FUNC (test code=PROTSFN) % 60-145 PROTEIN S FREE (test code=PROTSF) % MTHF REDUCTASE (PCR) [id number] 17:45:00* Test Item Value Reference Range Comments MTHF REDUCTASE (PCR) 677 (test code=MTHFR 677) COMPREHENSIVE METABOLIC [id number] 17:34:00* Test Item Value Reference Range Comments SODIUM (test code=NA) 142 mmol/L 136-145 POTASSIUM (test code=K) 3.8 mmol/L 3.5-5.1 CHLORIDE (test code=CL) 107.0 mmol/L 98-107 CARBON DIOXIDE (test code=CO2) 30.0 mmol/L 21-32 ANION GAP (test code=GAP) 8.8 10-20 GLUCOSE (test code=GLU) 92 mg/dL 74-106 BLOOD UREA NITROGEN (test code=BUN) 13 mg/dL 7-18 GLOMERULAR FILTRATION RATE (test code=GFR) > 60 mL/min >=60 Estimated GFR by using Modified MDRD formula.Chronic kidney disease is defined as either kidney damageor GFR <60 mL/min/1.73 m2 for >3 months. CREATININE (test code=CREAT) 0.80 mg/dL 0.55-1.02 Note change in reference range due to change in reagent. BUN/CREATININE RATIO (test code=BUN/CREA) 16.3 10-20 TOTAL PROTEIN (test code=PROT) 7.3 gram/dL 6.4-8.2 ALBUMIN (test code=ALB) 4.1 g/dL 3.4-5.0 GLOBULIN (test code=GLOB) 3.2 gram/dL 2.7-4.2 ALBUMIN/GLOBULIN RATIO (test code=A/G) 1.3 0.75-1.50 CALCIUM (test code=CA) 8.8 mg/dL 8.5-10.1 BILIRUBIN TOTAL (test code=BILT) 0.30 mg/dL 0.0-1.0 SGOT/AST (test code=AST) 19 IUnit/L 15-37 SGPT/ALT (test code=ALT) 22 IUnit/L 12-78 ALKALINE PHOSPHATASE TOTAL (test code=ALKP) 116 IUnit/L 45-117 Note change in reference range due to change in reagent. CBC W/AUTO [id number] 16:44:00* Test Item Value Reference Range Comments WHITE BLOOD CELL (test code=WBC) 6.7 K/mm3 4.5-12.5 RED BLOOD CELL (test code=RBC) 4.25 mill/mm3 3.7-5.2 HEMOGLOBIN (test code=HGB) 12.7 gram/dL 11.5-15.5 HEMATOCRIT (test code=HCT) 41.7 % 36.0-46.0 MEAN CELL VOLUME (test code=MCV) 98.1 fL 80-98 MEAN CELL HGB (test code=MCH) 29.9 picogram 27.0-33.0 MEAN CELL HGB CONCETRATION (test code=MCHC) 30.5 gram/dL 33.0-36.0 RED CELL DISTRIBUTION WIDTH (test code=RDW) 13.7 % 11.6-16.2 RED CELL DISTRIBUTION WIDTH SD (test code=RDW-SD) 49.6 fL 37.0-51.0 PLATELET COUNT (test code=PLT) 206 K/mm3 150-450 MEAN PLATELET VOLUME (test code=MPV) 9.9 fL 6.7-11.0 NEUTROPHIL % (test code=NT%) 45.6 % 39.0-69.0 IMMATURE GRANULOCYTE % (test code=IG%) 0.3 % 0.0-5.0 LYMPHOCYTE % (test code=LY%) 40.0 % 25.0-55.0 MONOCYTE % (test code=MO%) 9.3 % 0.0-10.0 EOSINOPHIL % (test code=EO%) 4.2 % 0.0-5.0 BASOPHIL % (test code=BA%) 0.6 % 0.0-1.0 NUCLEATED RBC % (test code=NRBC%) 0.0 % 0-0 NEUTROPHIL # (test code=NT#) 3.06 K/mm3 1.8-7.7 IMMATURE GRANULOCYTE # (test code=IG#) 0.02 x10 3/uL 0-0.03 LYMPHOCYTE # (test code=LY#) 2.68 K/mm3 1.0-5.0 MONOCYTE # (test code=MO#) 0.62 K/mm3 0-0.8 EOSINOPHIL # (test code=EO#) 0.28 K/mm3 0.0-0.5 BASOPHIL # (test code=BA#) 0.04 K/mm3 0.0-0.2 NUCLEATED RBC # (test code=NRBC#) 0.00 K/mm3 0.0-0.1 MANUAL DIFF REQUIRED (test code=MDIFF) NO BREAST ULTRASOUND [id number] 14:42:45- BREAST ULTRASOUND RIGHTULTRASOUND OF RIGHT BREAST: 06/12/2018CLINICAL: Abnormal mammogram. Comparison is made to exams dated 04/18/2018 mammogram, 04/02/2017 mammogram, 03/06/2016 mammogram, and 02/16/2015 mammogram - [facility]-. Ultrasound of the right breast was performed. Francois scale images of the real-time examination were reviewed. Survey ultrasound demonstrates simple cyst measuring 6 mm at the site of mammographic mass at 2 o'clock at a distance of 5 cm from the nipple. Survey ultrasound of the remaining breast demonstrates no sonographic abnormality.IMPRESSION: BENIGN There is no sonographic evidence of malignancy. Resume annual screening mammography in one year. Sergio Leonard M.D. q n/:06/12/2018 14:42:45 Arch Support Technician: Rosy TORRES, [facility] m[facility]-FWletter sent: BIRADS 1-2 Normal Ultrasound BI-RADS: 2 Benign
[2019-05-29 09:45] VITALS: BP 123/84
== END | disposition home or self-care (01) ==
LOC: OR 06:44
PROVIDERS: ATTEND Internal Medicine Gastroenterology
DX: K29.50 Unspecified chronic gastritis without bleeding (principal); K57.30 Diverticulosis of large intestine without perforation or abscess without bleeding; K64.8 Other hemorrhoids; Z71.3 Dietary counseling and surveillance; E66.3 Overweight; G47.33 Obstructive sleep apnea (adult) (pediatric); Z01.810 Encounter for preprocedural cardiovascular examination; Z79.02 Long term (current) use of antithrombotics/antiplatelets; Z68.25 Body mass index [BMI] 25.0-25.9, adult
CPT/HCPCS: 43239; 45378; 93005; J2250; J2405; J2704; J3010